=== PATIENT | female | born 1980 | race Caucasian/White ===

== ENCOUNTER → 2019-01-26 | Outpatient (CLI) | payer SELFPAY ==
--- NOTE | 2019-01-26 13:26 | PCVCIMAG ---
APPROVED REPORT Study performed: 01/26/2019 10:35:50 EXAM: Comprehensive 2D, Doppler, and color-flow Echocardiogram Patient Location: Echo lab Status: routine BSA: 2.77 HR: 80 bpmBP: 148/92 mmHg Rhythm: NSR Other Information Study Quality: Adequate Indications Diabetes Dyspnea peripheral edema/swelling, morbid obesity 2D Dimensions IVSd: 10.60 (7-11mm) LVDd: 47.51 mm PWd: 11.00 (7-11mm)Ascending Ao: 38.33 (22-36mm) LVDs: 36.36 (25-40mm) Left Atrium: 44.00 (27-40mm) Aortic Root: 33.74 mm LV Single Plane 4CH: 64.98 % LV Single Plane 2CH: 63.41 % Biplane EF: 64.3 % Volumes Left Atrial Volume (Systole) Single Plane 4CH: 72.64 mLSingle Plane 2CH: 60.98 mL LA ESV Index: 24.00 mL/m2 Aortic Valve AoV Peak Carson.: 1.71 m/s AO Peak Gr.: 11.63 mmHgLVOT Max P.62 mmHg LVOT Max V: 1.18 m/s Mitral Valve E/A Ratio: 1.3 MV Decel. Time: 227.33 ms MV E Max Carson.: 0.83 m/s MV A Carson.: 0.65 m/s IVRT: 65.74 ms Pulmonary Valve PV Peak Carson.: 1.13 m/sPV Peak Gr.: 5.09 mmHg Pulmonary Vein P Vein S: 0.40 m/sP Vein A: 0.35 m/s P Vein D: 0.53 m/sP Vein A Dur.: 148.8 msec P Vein S/D Ratio: 0.75 Tricuspid Valve TR Peak Carson.: 2.62 m/s TR Peak Gr.: 27.43 mmHg TV Vmax: 0.68 m/s Left Ventricle The left ventricle is normal size. There is normal LV segmental wall motion. There is normal left ventricular wall thickness. Left ventricular systolic function is normal. The left ventricular ejection fraction is within the normal range. LVEF is 60-65%. Grade II - pseudonormal filling dynamics. Right Ventricle The right ventricle is normal size. The right ventricular systolic function is normal. Atria The left atrium size is normal. The right atrium size is normal. Aortic Valve The aortic valve is normal in structure. No aortic regurgitation is present. There is no aortic valvular stenosis. Mitral Valve The mitral valve is normal in structure. Trace mitral regurgitation. No evidence of mitral valve stenosis. Tricuspid Valve The tricuspid valve is normal in structure. Mild tricuspid regurgitation with PAP of 34 mmHg. Pulmonic Valve The pulmonary valve is normal in structure. There is no pulmonic valvular regurgitation. Great Vessels The aortic root is normal in size. IVC is normal in size and collapses >50% with inspiration. Pericardium There is no pericardial effusion. There is no pleural effusion. <Conclusion> The left ventricle is normal size. LVEF is 60-65%. Grade II - pseudonormal filling dynamics. The right ventricle is normal size. The left atrium size is normal. The aortic valve is normal in structure. Trace mitral regurgitation. Mild tricuspid regurgitation with PAP of 34 mmHg. The aortic root is normal in size. There is no pericardial effusion.
== END | disposition home or self-care (01) ==
LOC: PCVCIMAG 10:54
PROVIDERS: ATTEND Family Medicine
DX: I07.1 Rheumatic tricuspid insufficiency (principal); R06.09 Other forms of dyspnea; E11.9 Type 2 diabetes mellitus without complications; R60.0 Localized edema; E66.8 Other obesity
CPT/HCPCS: 93306